=== PATIENT | female | born 1950 | race Two or more races ===

== ENCOUNTER 2017-04-19 16:19 | Emergency (ER) | payer OTHER ==
[2017-04-19] MEDS ORDERED: ONDANSETRON 4 MG/2 ML VIAL IVP ONE (17:08)
--- NOTE | 2017-04-19 17:08 | EDPHY ---
H & P Stated Complaint: vertigo, N/V, hx meningioma Time Seen by Provider: 04/19/17 16:24 HPI/ROS: CHIEF COMPLAINT: Dizziness and vomiting HISTORY OF PRESENT ILLNESS: This is a 66-year-old female who arrives by ambulance. While at work today she had the acute onset of dizziness that she describes as a spinning sensation. This was accompanied by sweating followed by "violent vomiting ". She has had 2 similar, although not as severe, episodes over the past couple of months. Her primary care physician thinks that these are vertigo. However, she is concerned because she has a history of a meningioma that is encasing the optic nerve. She was scheduled for an MRI scan to assess this meningioma but has a gadolinium allergy and the scan had to be canceled. She denies headache, change in hearing, new numbness, new weakness. No recent fever. REVIEW OF SYSTEMS: A ten point review of systems was performed and is negative with the exception of the items mentioned in the HPI. Past medical history: 1. Diabetes on metformin 2. Meningioma 3. Hyperlipidemia 4. Hard of hearing Social history: She is . She works at the group home. No tobacco or alcohol use. General Appearance: Alert. Vital signs reviewed. Eyes: Pupils equal and round, no conjunctival injection, no discharge. Anicteric. No nystagmus. ENT, Mouth: Mucous membranes are moist, no oropharyngeal erythema or edema. Neck: No lymphadenopathy, supple. Respiratory: Lungs are clear to auscultation; no wheezes, rales, or rhonchi. Cardiovascular: Regular rate and rhythm; no murmur, rub, or gallop. Gastrointestinal: Abdomen is soft and nontender, no masses or organomegaly, bowel sounds normal. Skin: Warm and dry, no rashes on exposed skin, normal color. Back: Nontender to palpation over the thoracolumbar spine. No CVAT. Extremities: No lower extremity edema, no calf tenderness or swelling. Neurological: Alert and oriented. Moving all four extremities easily and equally. Cranial nerves II through XII are examined and are intact (visual acuity not tested). Strength is 5 over 5 bilaterally with testing of all major motor groups. Sensation is intact to light touch over all 4 extremities. Deep tendon reflexes are 2+ in the biceps and knees bilaterally. [id number] is performed accurately. Psychiatric: Normal affect. - Medical/Surgical History Hx Asthma: No Hx Chronic Respiratory Disease: No Hx Diabetes: Yes Hx Cardiac Disease: No Hx Renal Disease: No Hx Cirrhosis: No Hx Alcoholism: No Hx HIV/AIDS: No Hx Splenectomy or Spleen Trauma: No Other PMH: meningioma "wrapped around optic nerve", DM II, vertigo - Social History Smoking Status: Never smoked Constitutional: Initial Vital Signs Temperature (C) 36.8 C 04/19/17 16:28 Heart Rate 84 04/19/17 16:28 Respiratory Rate 18 04/19/17 16:28 Blood Pressure 117/57 L 04/19/17 16:28 O2 Sat (%) 92 04/19/17 16:28 O2 Delivery Mode Room Air Allergies/Adverse Reactions: Penicillins Allergy (Verified 04/19/17 17:21) contrast dye Allergy (Uncoded 04/19/17 17:21) Home Medications: Medication Instructions Recorded Meclizine HCl 25 mg PO TID PRN #15 tablet 04/19/17 Metformin HCl 04/19/17 Ondansetron Odt [Zofran Odt 4 mg 4 mg PO Q4 PRN #10 tab 04/19/17 (RX)] SIMVASTATIN 04/19/17 VITAMIN D 04/19/17 Medical Decision Making ED Course/Re-evaluation: Patient re-evaluated at 5:45 p.m.. She has had a dose of Zofran and is no longer experiencing nausea. Oral meclizine given. At the time of my 2nd evaluation she is no longer experiencing vertigo. She has been up to the bathroom. This is her 3rd episode of what I believe is peripheral vertigo. These episodes come on quickly and resolve. I do not think that she needs neuro imaging today. It will be more beneficial for her to have the MRI scan that was scheduled by her [facility] physician. This study was ordered to evaluate her meningioma. I am recommending that she call tomorrow to reschedule this MRI. We reviewed the danger signs that should prompt her to be re-evaluated immediately. She is given a prescription for meclizine and for Zofran. Differential Diagnosis: Dizziness including but not limited to peripheral and central causes of vertigo , orthostatic causes including dehydration, and blood loss. - Data Points Medications Given: Discontinued Medications Meclizine HCl (Meclizine Hcl) 25 mg PO ONCE ONE Stop: 04/19/17 17:32 Last Admin: 04/19/17 17:45 Dose: 25 mg Ondansetron HCl (Zofran) 4 mg IVP EDNOW ONE Stop: 04/19/17 17:09 Last Admin: 04/19/17 17:21 Dose: 4 mg Departure - Departure Disposition: Home, Routine, Self-Care Clinical Impression: Vertigo Condition: Good Instructions: Vertigo (ED), Benign Paroxysmal Positional Vertigo (ED) Additional Instructions: Take the meclizine as prescribed if you have an episode of dizziness with vomiting. You can use the Zofran for nausea and vomiting. Place 1 wafer under your tongue and let it dissolve. You can use this medicine every 4 hours as needed. Tomorrow you should call your [facility] facility and arrange to have the MRI scan done. Referrals: [facility] [Outside] - As per Instructions Prescriptions: Meclizine HCl 25 mg PO TID PRN #15 tablet PRN Reason: Vertigo, dizziness Ondansetron Odt [Zofran Odt 4 mg (RX)] 4 mg PO Q4 PRN #10 tab PRN Reason: nausea
[2017-04-19] MEDS ORDERED: MECLIZINE HCL 25 MG TAB PO ONE (17:31)
[2017-04-19 18:54] VITALS: BP 112/68; PULSE 67; RESP 18; TEMP 98.4; O2SAT 97
== END 2017-04-19 18:57 | disposition home or self-care (01) ==
LOC: EDUNIT#
DX: R42 Dizziness and giddiness (principal); E11.9 Type 2 diabetes mellitus without complications; Z79.84 Long term (current) use of oral hypoglycemic drugs
CPT/HCPCS: 96374; 99284; J2405